=== PATIENT | female | born 1985 | race Caucasian/White ===

== ENCOUNTER → 2016-05-31 | Day surgery (SDC) | payer BC, OTHER ==
[~2016-05-31] VITALS: Ht 157.5 cm; Wt 63.5 kg
[~2016-05-31] MED LIST: ASPIR 8181 MG PO; DEXILANT60 MG PO; FLECAINIDE ACE100 MG PO; HYDROCODON-ACE1 EAC2 PO; PHENERGAN 12.12.5 M1 PO
== END | disposition home or self-care (01) ==
LOC: OR 06:35
PROVIDERS: Surgery
PROC: 0FT44ZZ Resection of Gallbladder, Percutaneous Endoscopic Approach (ICD-10-PCS; principal; 2016-05-31 12:00)
DX: K82.8 Other specified diseases of gallbladder (principal); N93.0 Postcoital and contact bleeding; N71.0 Acute inflammatory disease of uterus; D64.9 Anemia, unspecified; J45.909 Unspecified asthma, uncomplicated; K21.9 Gastro-esophageal reflux disease without esophagitis; N13.30 Unspecified hydronephrosis; E55.9 Vitamin D deficiency, unspecified; Z86.2 Personal history of diseases of the blood and blood-forming organs and certain disorders involving the immune mechanism; Z87.19 Personal history of other diseases of the digestive system; Z87.442 Personal history of urinary calculi; Z87.440 Personal history of urinary (tract) infections; Z88.1 Allergy status to other antibiotic agents; Z88.0 Allergy status to penicillin; Z88.8 Allergy status to other drugs, medicaments and biological substances; Z79.82 Long term (current) use of aspirin; Z79.899 Other long term (current) drug therapy; Z83.49 Family history of other endocrine, nutritional and metabolic diseases; Z82.49 Family history of ischemic heart disease and other diseases of the circulatory system; Z84.89 Family history of other specified conditions
CPT/HCPCS: 84703; 93005; J1100; J1885; J2250; J2405; J2710; J3010; J7030; J7120; Q9962

== ENCOUNTER → 2016-07-01 | Outpatient (CLI) | payer BC, OTHER | LOC: CT 14:00 → KOH-I 15:24 | DX: R51 Headache (principal) | CPT/HCPCS: 70450 ==

== ENCOUNTER 2016-09-17 10:38 | Emergency (ER) | payer BC, OTHER ==
[2016-09-17 13:37] LABS: HEMOGLOBIN 14.3 gm/dl (12.3-15.3); RED BLOOD COUNT 4.53 M/UL (4.00-5.10); WHITE BLOOD COUNT 8.8 K/UL (4.5-11.0)
[2016-09-17 13:51] LABS: BUN/CREATININE RATIO 23 (0-10)
== END 2016-09-17 15:00 | disposition home or self-care (01) ==
LOC: ER1 10:38
PROVIDERS: Emergency Medicine
DX: R06.02 Shortness of breath (principal); T36.8X5A Adverse effect of other systemic antibiotics, initial encounter; I10 Essential (primary) hypertension; Z90.49 Acquired absence of other specified parts of digestive tract; Z87.442 Personal history of urinary calculi
CPT/HCPCS: 36415; 70491; 80048; 81001; 84703; 85025; 96374; 96375; 96376; 99285; J1100; J1200; J2930; J7050; Q9962

== ENCOUNTER → 2020-05-09 | Outpatient (CLI) | payer OTHER ==
[~2020-05-09] MED LIST changes: +BACTRIM 400-801 EACH PO; +CIPRO500 MG PO; +NORCO 5-325 TA1 EACH PO; +PERCOCET 5/325 T1 EA PO
[2020-05-09 10:43] LABS: HEMOGLOBIN 13.7 gm/dl (12.3-15.3); RED BLOOD COUNT 4.28 M/UL (4.00-5.10); WHITE BLOOD COUNT 9.3 K/UL (4.5-11.0)
[2020-05-09 11:09] LABS: BUN/CREATININE RATIO 13 (0-10)
== END ==
LOC: LAB 10:00
PROVIDERS: Nurse Practitioner Family
DX: I10 Essential (primary) hypertension (principal); E78.2 Mixed hyperlipidemia; R06.02 Shortness of breath; R00.9 Unspecified abnormalities of heart beat; N39.0 Urinary tract infection, site not specified; R53.83 Other fatigue
CPT/HCPCS: 36415; 80053; 82607; 83540; 83550; 84443; 85025; 87086

== ENCOUNTER → 2020-06-10 | Outpatient (CLI) | payer OTHER | LOC: LAB 14:53 | DX: E03.9 Hypothyroidism, unspecified (principal) | CPT/HCPCS: 36415; 84439; 84481 ==

== ENCOUNTER → 2021-07-06 | Outpatient (CLI) | payer OTHER ==
[2021-07-06 09:29] LABS: HEMOGLOBIN 14.1 gm/dl (12.3-15.3); RED BLOOD COUNT 4.38 M/UL (4.00-5.10); WHITE BLOOD COUNT 8.4 K/UL (4.5-11.0)
[2021-07-06 09:51] LABS: BUN/CREATININE RATIO 17 (0-10)
== END ==
LOC: LAB 09:10
PROVIDERS: Nurse Practitioner Family
DX: I49.8 Other specified cardiac arrhythmias (principal); E53.8 Deficiency of other specified B group vitamins; E55.9 Vitamin D deficiency, unspecified
CPT/HCPCS: 36415; 80053; 80061; 82607; 84439; 84443; 85025; 85652; 86140

== ENCOUNTER → 2021-07-30 | Outpatient (CLI) | payer OTHER ==
[2021-07-31 12:11] LABS: RHEUMATOID ARTHRITIS FACTOR <10.0 IU/mL (<14.0)
[2021-07-31 14:12] LABS: RNP ANTIBODIES <0.2 AI (0.0-0.9); SMITH ANTIBODIES <0.2 AI (0.0-0.9)
== END ==
LOC: LAB 14:43
PROVIDERS: Nurse Practitioner Family
DX: R79.82 Elevated C-reactive protein (CRP) (principal); M79.10 Myalgia, unspecified site
CPT/HCPCS: 36415; 82550; 86038; 86200; 86431; 87086

== ENCOUNTER → 2021-09-24 | Outpatient (CLI) | payer OTHER | LOC: HEART 5 09-09 08:30 | DX: I49.8 Other specified cardiac arrhythmias (principal); R00.0 Tachycardia, unspecified; I07.1 Rheumatic tricuspid insufficiency | CPT/HCPCS: 93306 ==